=== PATIENT | male | born 2000 | race Caucasian/White ===

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

== ENCOUNTER 2023-05-25 07:59 | Emergency (ER) | payer OTHER ==
[~2023-05-25] VITALS: Ht 180.3 cm; Wt 91.0 kg
[2023-05-25] MEDS ORDERED: QUETIAPINE FUM300 M1 PO (08:15)
[2023-05-25 09:00] VITALS: BP 143/88
== END 2023-05-25 09:01 | disposition home or self-care (01) ==
LOC: ED 07:59
DX: S43.401A Unspecified sprain of right shoulder joint, initial encounter (principal); F90.9 Attention-deficit hyperactivity disorder, unspecified type; F31.9 Bipolar disorder, unspecified; Z79.899 Other long term (current) drug therapy; X50.0XXA Overexertion from strenuous movement or load, initial encounter; Y93.B9 Activity, other involving muscle strengthening exercises
CPT/HCPCS: 73030; 99283-25

== ENCOUNTER 2023-09-14 13:50 | Emergency (ER) | payer OTHER ==
[~2023-09-14] VITALS: Ht 180.3 cm; Wt 98.3 kg
[~2023-09-14 13:50] MED LIST changes: +OMEPRAZOLE20 MG PO; +QUETIAPINE FUM300 M1 PO; +SUCRALFATE1 GM PO
[2023-09-14] MEDS ORDERED: VITAMIN D21250 MCG PO (15:10)
[2023-09-14] MEDS ORDERED: BUPROPION XL150 MG PO (15:10)
[2023-09-14] MEDS ORDERED: PANTOPRAZOLE SO20 MG PO (15:10)
[2023-09-14] MEDS ORDERED: NITROGLYCERIN 0.4 MG SUBL SL PRN (15:15)
[2023-09-14 15:17] LABS: BASOPHILS 0.8 % (0-2); HEMATOCRIT 47.1 % (35.0-50.0); HEMOGLOBIN 16.5 g/dL (12.0-18.0); MCHC 35.1 g/dl (30-36); MCV 88.5 fl (81-99); MONOCYTES 10.8 % (0-12); NEUTROPHILS 57.4 % (39-80); PLATELET COUNT 258 K/uL (140-440); RBC 5.32 M/ul (4.3-5.7); RDW 12.7 (10.5-15.0)
[2023-09-14 15:31] LABS: ALBUMIN 4.1 g/dL (3.4-5.0); ALBUMIN/GLOBULIN RATIO 1.21 (1.1-2.4); ANION GAP 14.1 (7-21); BILIRUBIN, TOTAL 0.4 ng/dL (0.2-1.0); BUN/CREATININE RATIO 9.64 (6.0-28.6); CALCIUM 8.9 mg/dL (8.5-10.1); CREATININE, SERUM 1.14 mg/dL (0.70-1.30); POTASSIUM 4.1 mmol/L (3.5-5.1); PROTEIN, TOTAL 7.5 g/dL (6.4-8.2)
[2023-09-14 17:02] VITALS: BP 128/82
--- NOTE | 2023-09-16 22:12 | EKG ---
[facility] [address] [facility] [place], [place] [address] Signed Normal sinus rhythm Rightward axis Borderline ECG No previous ECGs available Confirmed by DEANDRE HAMILTON MD ([id number]) on 09/16/2023 10:11:57 PM Electronically Signed By: DEANDRE HAMILTON 09/16/232211 PATIENT NAME: JAEL MCGARRY EDIN Electrocardiogram DATE OF : 01 PHYSICIAN: DEANDRE HAMILTON REPORT #: [id number] REPORT IS CONFIDENTIAL AND NOT TO BE RELEASED WITHOUT AUTHORIZATION
== END 2023-09-14 17:02 | disposition home or self-care (01) ==
LOC: ED 13:50
PROVIDERS: Emergency Medicine
DX: R07.89 Other chest pain (principal); Z79.899 Other long term (current) drug therapy
CPT/HCPCS: 36415; 71045; 80053; 83735; 84484; 85025; 93005; 93010; 99285-25

== ENCOUNTER 2024-01-24 07:48 | Day surgery (SDC) | payer OTHER ==
[2024-01-11 08:40] VITALS: BP 108/75
[~2024-01-24] VITALS: Ht 180.3 cm; Wt 96.4 kg
[~2024-01-24 07:48] MED LIST changes: +BUPROPION XL150 MG PO; +CARAFATE1 GM PO; +IBLOOD GLUCOSE TEST STRIP 1 EA TEST VI PRN; +LACTATED RINGER'S 1,000 ML IV SCH; +LIDOCAINE HCL 1% 5 ML SDV INJ ONE; +ONDANSETRON ODT8 MG SL; +PANTOPRAZOLE SO20 MG PO; +PRILOSEC OTC20 MG PO; +VITAMIN D21250 MCG PO
[2024-01-24 07:59] VITALS: BP 126/77
[2024-01-24] MEDS ORDERED: MIDAZOLAM HCL 5 MG/5 ML VIAL ONE (08:54)
[2024-01-24] MEDS ORDERED: fentaNYL citrate 100 MCG/2 ML VIAL ONE (08:54)
--- NOTE | 2024-01-24 10:19 | NUR ---
01/24/24 Tano9 LOPEZ SMITH 1010 PT ARRIVED TO PACU VIA STREACHER, PT AWAKE WITH EYES OPEN, PT HAS NATURAL AIRWAY AND ON RA. PT BREATHING EQUAL AND UNLABORED. REPORT TAKEN FROM LYUDMILA GUERRA. 1015 PT REPORTS NO PAIN OR NAUSEA AT THIS TIME. PT REPORTS JUST FEELING DROWSEY. PT RESTING WITH EYES CLOSED.
[2024-01-24 10:46] VITALS: BP 108/70
--- NOTE | 2024-01-24 11:51 | OR ---
[facility] [address] [place], [place] [address] Signed DATE OF OPERATION: 01/24/2024 SURGEON: Reuben Peace MD PREOPERATIVE DIAGNOSES: 1. Generalized abdominal pain with irritable bowel syndrome. 2. Nausea and vomiting. 3. Intermittent rectal bleeding. 4. A sister with ulcerative colitis diagnosed at age 14, a father who of colon cancer at age 50. 5. Personal history of gastric duodenitis and distal esophagitis. 6. Small hiatal hernia. 7. Mild strain with bowel movements. 8. Irritable bowel syndrome in his maternal grandmother, father and sister. POSTOPERATIVE DIAGNOSES: 1. Small hiatal hernia (42-40 cm). 2. GE junction at 40 cm. 3. Distal antral gastric ulcer. 4. Moderate gastritis. 5. Moderate distal linear esophagitis. 6. Unremarkable colonoscopy. PROCEDURES: 1. Esophagogastroduodenoscopy with CLOtest and biopsies of the duodenum, pyloric bulb, antrum and GE junction. 2. Colonoscopy with cold biopsies of the right colon, transverse colon, left colon, sigmoid colon and rectum. ESTIMATED BLOOD LOSS: None. INDICATIONS: Neal is a 23-year-old young man, asked to see me for repeat upper and lower endoscopy. I helped him in June 2020 in this regard. He was 19 years old at that time. He had very similar symptoms with his generalized abdominal pain, nausea, vomiting, irritable bowel syndrome. He always mentions intermittent rectal bleeding. We know his sister was diagnosed with ulcerative colitis at age 14. She is doing well and is into her mid 20s. His biologic father had mental health issues and was diagnosed and of colon cancer at age 50. Neal had gastroduodenitis and esophagitis back Electronically Signed By: REUBEN PEACE MD 01/24/24 1151 PATIENT NAME: NEAL MCGARRY OPERATIVE REPORT DATE OF : 01 REPORT #: [id number] PHYSICIAN: REUBEN PEACE MD PCP: SYDNIE LONGO PA-C REPORT IS CONFIDENTIAL AND NOT TO BE RELEASED WITHOUT AUTHORIZATION [facility] [address] [place], [place] [address] Signed in 2020. He also had a small hiatal hernia. He said he sometimes has strained a little for bowel movements. There was irritable bowel syndrome in his maternal grandmother, father and sister. His primary care provider wanted him to come and repeat the studies. He was started on Protonix and that has helped the most. He said the sucralfate really did not help whatsoever. He does take medicine for bipolar disorder, but he has chose not to take any medicine for his ADHD. He also has depression, anxiety associated with panic attacks. There was some mention in his previous notes that he has constipation and ulcers and he has painful and difficult urination. He has insomnia as well. In the office I had given him pamphlets on both upper and lower endoscopy. We had reviewed the nature of the two tests. He understands there is risk including, but not limited to gas bloating, crampy abdominal pain, bleeding, perforation requiring surgery, and missed diagnosis. We also reviewed the written instructions for bowel prep line by line. It is the same bowel prep he took in 2020. We also reviewed his medications carefully. We had asked for monitored anesthesia care, but his insurance company had disagreed. We used monitored anesthesia care for Neal when he was 19 and that worked out very well for him. He understands that an adult person has to take him home afterwards. He had expressed understanding and wished to proceed. PROCEDURE IN DETAIL: Neal was taken into our endoscopy suite and placed in a supine semi-recumbent position. We did have our anesthesia provider see him preoperatively to review the chart and to talk with Neal in case we needed monitored anesthesia care should the Versed and fentanyl not be enough. The posterior oropharynx was anesthetized with lidocaine spray. A bite block was utilized for the case. We had to give 9 mg of Versed and 100 mcg fentanyl just to do the upper endoscopy. He was awakened, watching and following directions throughout the test. He did very well in that regard. We passed the scope down and out into the duodenum. We took biopsies out of the duodenum and pyloric channel for pathologic review. He does have moderate gastritis and ulcer in his distal antrum. It is star-shaped and had some dried blood around the area. We went and took a biopsy of the gastric ulcer. We took an additional biopsy from the antrum for CLOtest. His CLOtest was negative previously. Upon retroflexion of scope we could see that he does have a small hiatal hernia. We could see the gastritis up in the body of the stomach as well. The scope was withdrawn up through the area of the GE junction, which was compliant without stricture. It measured 42 cm back to 40 cm. He had moderate disruption to the Z-line. He had linear esophagitis extending up into the distal esophagus. No obvious evidence for any Caro's mucosa. We went and took a biopsy along the edge of the Z-line in this regard. The middle and upper esophagus seemed to be unremarkable. After this, the gas was suctioned out and the gastroscope removed. Neal tolerated the procedure amazingly well despite the fact he was wide awake and following directions. In fact, he was able to immediately roll in the left lateral decubitus position on his own for his colonoscopy. Electronically Signed By: REUBEN PEACE MD 01/24/24 1151 PATIENT NAME: NEAL MCGARRY OPERATIVE REPORT DATE OF : 01 REPORT #: [id number] PHYSICIAN: REUBEN PEACE MD PCP: SYDNIE LONGO PA-C REPORT IS CONFIDENTIAL AND NOT TO BE RELEASED WITHOUT AUTHORIZATION [facility] [address] [place], [place] [address] Signed We gave Neal additional 1 mg of Versed and up to 175 mcg of fentanyl to do his colonoscopy. Again, he was awake and he was moaning, but he did grit his teeth. We were able to get through with some abdominal compression into the cecum itself. His digital rectal exam had been unremarkable. There were no external hemorrhoids. He had good sphincter tone. There were no masses. His prep was quite excellent. We got the scope into the cecum and suctioned out some fluid. We could see the appendiceal orifice and ileocecal valve. When we withdrew the scope just a bit, he was awake enough and pushing. We could not get the scope back in to turn into the terminal ileum. We did biopsy of the terminal ileum three years ago. Nevertheless, the entire colon and rectum were unremarkable. We went ahead and took random biopsies throughout as stated above. Once in the rectum, the scope was retroflexed. We could not see any obvious pathology above the anal canal. After this, the gas was suctioned out. The colonoscope removed. Neal tolerated the procedure quite well. RECOMMENDATIONS: I will see Neal back in my office in 7 to 14 days to review his results. It looks like Neal is having trouble with stress gastritis and stress ulcers. He might also consider treating his ADHD as an adult if he is having racing thoughts resulting in stress. MD CARA Camara/OWENL /[id number] cc: MD Sydnie Camara PA-C Copies: REUBEN PEACE MD, CHLOE K PA-C ~ Electronically Signed By: REUBEN PEACE MD 01/24/24 1151 PATIENT NAME: NEAL MCGARRY OPERATIVE REPORT DATE OF : 01 REPORT #: [id number] PHYSICIAN: REUBEN PEACE MD PCP: SYDNIE LONGO PA-C REPORT IS CONFIDENTIAL AND NOT TO BE RELEASED WITHOUT AUTHORIZATION
--- NOTE | 2024-01-30 18:18 | PATH ---
[facility] [address] [place] [address] Signed THIS IS AN ADDENDUM REPORT SPECIMEN(S): A DUODENAL BIOPSY SPECIMEN(S): B ANTRUM/PYLORUS BIOPSY SPECIMEN(S): C ANTRUM BIOPSY SPECIMEN(S): D GE JUNCTION BIOPSY SPECIMEN(S): E ASCENDING COLON BIOPSY SPECIMEN(S): F TRANSVERSE COLON BIOPSY SPECIMEN(S): G DESCENDING COLON BIOPSY SPECIMEN(S): H SIGMOID COLON BIOPSY SPECIMEN(S): I RECTUM BIOPSY SPECIMEN SOURCE: A. DUODENAL BIOPSY B. ANTRUM/PYLORUS BIOPSY C. ANTRUM BIOPSY D. GE JUNCTION BIOPSY E. ASCENDING COLON BIOPSY F. TRANSVERSE COLON BIOPSY G. DESCENDING COLON BIOPSY H. SIGMOID COLON BIOPSY I. RECTUM BIOPSY CLINICAL HISTORY: IBS, rectal bleeding, abdominal pain, nausea, family history of colon cancer and ulcerative colitis, esophagitis and gastritis. FINAL PATHOLOGIC DIAGNOSIS: A. Duodenum biopsy: - Benign duodenal mucosa, negative for specific diagnostic abnormality. B. Antrum/pylorus biopsy: - Benign duodenal mucosa, negative for specific diagnostic abnormality. C. Antrum biopsy: - Benign gastric mucosa with focal slight chronic inflammation. - Negative for evidence of Helicobacter organisms on routine HE stained sections. - Focal reactive epithelial features. D. GE junction biopsy: - Esophageal mucosa with reactive features, negative for increased epithelial eosinophils. - Negative for glandular mucosa. PATIENT NAME: JAEL MARTÍNEZ PATHOLOGY DATE OF : 01 REPORT #: [id number] PHYSICIAN: SERGIO PATHOLOGY PCP: HUMPHREY LONGO PA-C REPORT IS CONFIDENTIAL AND NOT TO BE RELEASED WITHOUT AUTHORIZATION [facility] [address] [place], [place] [address] Signed E. Ascending colon biopsy: - Quiescent colonic mucosa, negative for dysplasia. F. Transverse colon biopsy: - Quiescent colonic mucosa, negative for dysplasia. G. Descending colon biopsy: - Quiescent colonic mucosa, negative for dysplasia. H. Sigmoid colon biopsy: - Quiescent colonic mucosa, negative for dysplasia. I. Rectum, biopsy: - Quiescent colonic mucosa, negative for dysplasia. JVR:[email or web address] MICROSCOPIC EXAMINATION: Histologic sections of all submitted blocks are examined by light microscopy. These findings, together with the gross examination, support the pathologic diagnosis. GROSS DESCRIPTION: A. The specimen, labeled and designated "Mauricio, M, duodenal biopsy," is received in formalin and consists of one webb soft tissue fragment, 0.3 cm. Entirely submitted in (A1). B. The specimen, labeled and designated "Martínez, M, antrum/pylorus biopsy," is received in formalin and consists of one webb soft tissue fragment, 0.3 cm. Entirely submitted in (B1). C. The specimen, labeled and designated "Martínez, M, antrum biopsy," is received in formalin and consists of one webb soft tissue fragment, 0.3 cm. Entirely submitted in (C1). D. The specimen, labeled and designated "Martínez, M, GE junction," is received in formalin and consists of one webb soft tissue fragment, 0.3 cm. Entirely submitted in (D1). E. The specimen, labeled and designated "Martínez, M, ascending colon biopsy," is received in formalin and consists of two webb soft tissue fragments, ranging from 0.3-0.4 cm. Entirely submitted in (E1). F. The specimen, labeled and designated "Mauricio, Brandi, transverse colon biopsy," is received in formalin and consists of one webb soft tissue fragment, 0.5 cm. Entirely submitted in (F1). G. The specimen, labeled and designated "Mauricio, Brandi, descending colon biopsy," is received in formalin and consists of one webb soft tissue fragment, 0.3 cm. Entirely submitted in (G1). H. The specimen, labeled and designated "Mauricio, Brandi, sigmoid colon biopsy," is PATIENT NAME: JAEL MARTÍNEZ PATHOLOGY DATE OF : 01 REPORT #: [id number] PHYSICIAN: SERGIO MELARA PCP: HUMPHREY LONGO PA-C REPORT IS CONFIDENTIAL AND NOT TO BE RELEASED WITHOUT AUTHORIZATION [facility] [address] [place], [place] [address] Signed received in formalin and consists of one webb soft tissue fragment, 0.3 cm. Entirely submitted in (H1). I. The specimen, labeled and designated "Mauricio, Brandi, rectum biopsy," is received in formalin and consists of one webb soft tissue fragment, 0.3 cm. Entirely submitted in (I1). AB (under the direct supervision of a pathologist) The Gross Description was prepared using a voice recognition system. The report was reviewed for accuracy; however, sound-alike word errors, addition and/or deletions may occur. If there is any question about this report, please contact Client Services. PERFORMING LABORATORY: Technical component was performed by [facility]: [facility], [address] [place] [id number] (CLIA# [id number]). Professional interpretation was performed by [facility], [address] [place] [address] [address] [place] [address] (CLIA#: [id number]). REASON FOR ADDENDUM: To report results of Helicobacter pylori immunostain. ADDENDUM COMMENT: The Helicobacter pylori immunostain is performed with appropriate controls on block B1 and is negative for organisms. The original diagnostic features remain unchanged. JVR:[email or web address] Diagnostician: Artemio Berry MD Pathologist Electronically Signed 01/30/2024 Copies: ~ PATIENT NAME: JAEL MARTÍNEZ PATHOLOGY DATE OF : 01 REPORT #: [id number] PHYSICIAN: ELEANORhhgregg PATHOLOGY PCP: HUMPHREY LONGO PA-C REPORT IS CONFIDENTIAL AND NOT TO BE RELEASED WITHOUT AUTHORIZATION
== END 2024-01-24 11:00 | disposition home or self-care (01) ==
LOC: DS 07:48
PROVIDERS: ATTEND Colon & Rectal Surgery
PROC: 0DDF8ZX Extraction of Right Large Intestine, Via Natural or Artificial Opening Endoscopic, Diagnostic (ICD-10-PCS; 2024-01-24)
PROC: 0DB98ZX Excision of Duodenum, Via Natural or Artificial Opening Endoscopic, Diagnostic (ICD-10-PCS; 2024-01-24)
PROC: 0DB78ZX Excision of Stomach, Pylorus, Via Natural or Artificial Opening Endoscopic, Diagnostic (ICD-10-PCS; 2024-01-24)
PROC: 0DB48ZX Excision of Esophagogastric Junction, Via Natural or Artificial Opening Endoscopic, Diagnostic (ICD-10-PCS; 2024-01-24)
PROC: 0DDG8ZX Extraction of Left Large Intestine, Via Natural or Artificial Opening Endoscopic, Diagnostic (ICD-10-PCS; principal; 2024-01-24 08:45)
PROC: 0DDL8ZX Extraction of Transverse Colon, Via Natural or Artificial Opening Endoscopic, Diagnostic (ICD-10-PCS; 2024-01-24 08:45)
DX: K29.70 Gastritis, unspecified, without bleeding (principal); K20.90 Esophagitis, unspecified without bleeding; K25.9 Gastric ulcer, unspecified as acute or chronic, without hemorrhage or perforation; K44.9 Diaphragmatic hernia without obstruction or gangrene; F31.9 Bipolar disorder, unspecified; F41.0 Panic disorder [episodic paroxysmal anxiety]; F90.9 Attention-deficit hyperactivity disorder, unspecified type; Z87.19 Personal history of other diseases of the digestive system; Z80.0 Family history of malignant neoplasm of digestive organs
CPT/HCPCS: 36415; 87077; 88305; 88342; 99153; G0500; J2250; J3010; J7121

== ENCOUNTER 2024-02-07 17:54 | Emergency (ER) | payer OTHER ==
[~2024-02-07] VITALS: Ht 180.3 cm; Wt 93.7 kg
[~2024-02-07 17:54] MED LIST changes: -IBLOOD GLUCOSE TEST STRIP 1 EA TEST VI PRN; -LACTATED RINGER'S 1,000 ML IV SCH; -LIDOCAINE HCL 1% 5 ML SDV INJ ONE
--- OUTSIDE RECORDS SUMMARY | 2024-02-07 18:01 | XMS ---
PreManage Notification: JAEL MCGARRY [employer] Worker Events No recent Security Events currently on file CRITERIA MET - [facility] - 2 Visits in 30 Days CARE PROVIDERS -, [facility] Dentist: Branch Maker [facility] [place] PHONE: [phone] -, [facility]- Dentist: Branch Maker [facility] PHONE: [phone] Care Guidelines exist for the following facilities: Marge Pratima ( 07/16/2019 ) Jaspreet VISIT COUNT (12 MO.) [address] [facility] TOTAL 5 NOTE: Visits indicate total known visits. ED/UCC VISIT TRACKING (12 MO.) 02/07/2024 17:54 [facility] [place] TYPE: Emergency COMPLAINT: - LEG PAIN 01/09/2024 13:28 [facility] [place] TYPE: Emergency COMPLAINT: - ABDOMINAL PAIN DIAGNOSES: - Epigastric pain - Nausea with vomiting, unspecified - Other halfway (current) drug therapy - Right upper quadrant pain 09/14/2023 13:51 [facility] [place] TYPE: Emergency COMPLAINT: - CHEST PAIN DIAGNOSES: - Chest pain, unspecified - Other chest pain - Other halfway (current) drug therapy 07/21/2023 19:46 [facility] [place] TYPE: Emergency COMPLAINT: - ABD PAIN DIAGNOSES: - Attention-deficit hyperactivity disorder, unspecified type - Bipolar disorder, unspecified - Gastro-esophageal reflux disease without esophagitis - Irritable bowel syndrome without diarrhea - Other halfway (current) drug therapy - Right upper quadrant pain 05/25/2023 08:01 [facility] [place] TYPE: Emergency COMPLAINT: - R SHOULDER INJURY DIAGNOSES: - Activity, other involving muscle strengthening exercises - Attention-deficit hyperactivity disorder, unspecified type - Bipolar disorder, unspecified - Other termite exterminator helper (current) drug therapy - Overexertion from strenuous movement or load, initial encounter - Pain in right shoulder - Unspecified sprain of right shoulder joint, initial encounter INPATIENT VISIT TRACKING (12 MO.) No inpatient visits to display in this time frame [email or web address]
[2024-02-07 21:16] LABS: HEMATOCRIT 46.2 % (35.0-50.0); HEMOGLOBIN 16.2 g/dL (12.0-18.0); MCH 31.6 (27-36); MCV 90.4 fl (81-99); RBC 5.11 M/ul (4.3-5.7)
[2024-02-07 21:19] LABS: BASOPHILS 0.9 % (0-2); EOSINOPHILS 2.8 % (0-6); LYMPHOCYTES 34.8 % (24-44); MONOCYTES 8.7 % (0-12); NEUTROPHILS 52.8 % (39-80); PLATELET COUNT 308 K/uL (140-440); RDW 12.1 (10.5-15.0)
[2024-02-07 21:30] LABS: ALBUMIN 4.2 g/dL (3.4-5.0); ALBUMIN/GLOBULIN RATIO 1.24 (1.1-2.4); ANION GAP 13.2 (7-21); BILIRUBIN, TOTAL 0.5 ng/dL (0.2-1.0); BUN/CREATININE RATIO 14.58 (6.0-28.6); CREATININE, SERUM 0.96 mg/dL (0.70-1.30); POTASSIUM 4.2 mmol/L (3.5-5.1); PROTEIN, TOTAL 7.6 g/dL (6.4-8.2)
[2024-02-07 21:56] LABS: ABO O; ANTIBODY SCREEN NEGATIVE; RH NEGATIVE
[2024-02-07] MEDS ORDERED: HYDROCODONE BIT/ACETAMINOPHEN 5/325 MG 1 TAB HOME.PACK PO ONE (23:45)
[2024-02-07] MEDS ORDERED: HYDROCODON-ACE1 EA10 PO (23:50)
[2024-02-08 00:10] VITALS: BP 119/63
== END 2024-02-08 00:10 | disposition home or self-care (01) ==
LOC: ED 17:54
PROVIDERS: Family Medicine
DX: S20.211A Contusion of right front wall of thorax, initial encounter (principal); S70.01XA Contusion of right hip, initial encounter; V27.99XA Unspecified rider of other motorcycle injured in collision with fixed or stationary object in traffic accident, initial encounter
CPT/HCPCS: 36415; 70450; 71260; 72125; 73552; 74177; 80053; 85025; 86850; 86900; 86901; 99284-25; A9270; Q9967